=== PATIENT | female | born 1975 | race Caucasian/White ===

== ENCOUNTER 2020-11-26 06:38 | Day surgery (SDC) | payer OTHER ==
[2020-11-22 10:12] LABS: BASOPHILS % (AUTO) 0.4 % (0.0-5.0); HEMATOCRIT 40.1 % (36-48); LYMPHOCYTES % (AUTO) 37.5 % (21.0-51.0); MEAN CORPUSCULAR HEMOGLOBIN 24.9 pg (27.0-33.0); MEAN CORPUSCULAR HGB CONC 30.4 g/dL (32.0-36.0); MEAN CORPUSCULAR VOLUME 81.8 fL (79-99); MONOCYTES % (AUTO) 9.8 % (3.0-13.0); NEUTROPHILS % (AUTO) 50.1 % (40.0-77.0); PLATELET COUNT (AUTO) 301 K/uL (130-400); RED CELL DISTRIBUTION WIDTH 14.4 % (11.0-15.5)
[2020-11-22 10:24] LABS: CREATININE 0.7 mg/dL (0.5-1.5); POTASSIUM 4.4 mmol/L (3.5-5.1)
[2020-11-23 13:04] VITALS: BP 140/85
[~2020-11-26] VITALS: Ht 167.6 cm; Wt 87.5 kg
[2020-11-26] VITALS (17 sets, daily range): BP systolic 119–138; BP diastolic 59–80
[~2020-11-26 06:38] MED LIST: CEFAZOLIN SODIUM 1 GM VIAL IVP SCH; MULTIVITAMIN PO
[2020-11-26] MEDS ORDERED: LACTATED RINGERS 1000ML 1,000 ML IV ONE (07:13)
[2020-11-26] MEDS ORDERED: SODIUM CHLORIDE 0.9% 10 ML VIAL ONE (07:14)
[2020-11-26] MEDS ORDERED: PROPOFOL 10 MG/ML 20ML VIAL IV ONE ×2 (07:15→09:08)
[2020-11-26] MEDS ORDERED: GLYCOPYRROLATE 1 MG/5 ML SYRINGE ONE (07:15)
[2020-11-26] MEDS ORDERED: SUCCINYLCHOLINE CHLORIDE 20 MG/ML 10 ML VIAL ONE (07:15)
[2020-11-26] MEDS ORDERED: DEXAMETHASONE SOD PHOSPHATE 10MG/ML 1ML VIAL ONE (07:15)
[2020-11-26] MEDS ORDERED: LIDOCAINE PF 2% 5ML ABBOJECT ONE (07:15)
[2020-11-26] MEDS ORDERED: ONDANSETRON HCL 4 MG/2 ML VIAL ONE ×2 (07:16→08:57)
[2020-11-26] MEDS ORDERED: MIDAZOLAM HCL 1 MG/ML 2ML VIAL ONE (07:16)
[2020-11-26] MEDS ORDERED: FENTANYL CITRATE PF 50 MCG/1 ML 2ML VIAL ONE ×3 (07:16→10:49)
[2020-11-26] MEDS ORDERED: ROCURONIUM 10MG/1ML SYR 10 MG/ML ML ONE (07:16)
[2020-11-26] MEDS ORDERED: NEOSTIGMINE 5MG/5ML SYR IV ONE (07:16)
[2020-11-26] MEDS ORDERED: ROPIVACAINE 0.5% 5MG/ML 30ML IJ ONE (07:26)
[2020-11-26] MEDS ORDERED: CLINDAMYCIN 900 MG/D5% WATER 50 ML IV ONE (08:04)
[2020-11-26] MEDS ORDERED: CLINDAMYCIN PHOSPHATE 150 MG/ML 6ML VIAL ONE (08:46)
[2020-11-26] MEDS ORDERED: PHENYLEPHRINE HCL 10 MG/ML 1ML VIAL IV ONE (09:03)
[2020-11-26] MEDS ORDERED: CALDOLOR 800MG+NS 250ML 250 ML IV ONE (11:11)
[2020-11-26] MEDS ORDERED: CLIN300C3 PO (11:30)
[2020-11-26] MEDS ORDERED: CALDOLOR 800MG+NS 250ML 250 ML IV SCH (11:30)
[2020-11-26] MEDS ORDERED: MEPERIDINE-PF 25 MG/ML SYG ONE (12:08)
== END 2020-11-26 13:15 | disposition home or self-care (01) ==
LOC: DAH 06:38
PROVIDERS: ATTEND Orthopaedic Surgery
DX: S83.511A Sprain of anterior cruciate ligament of right knee, initial encounter (principal); Z20.828 Contact with and (suspected) exposure to other viral communicable diseases; S83.241A Other tear of medial meniscus, current injury, right knee, initial encounter; S80.11XA Contusion of right lower leg, initial encounter; M94.261 Chondromalacia, right knee; E66.9 Obesity, unspecified; Z88.8 Allergy status to other drugs, medicaments and biological substances; Z88.1 Allergy status to other antibiotic agents; Z98.891 History of uterine scar from previous surgery; Z90.3 Acquired absence of stomach [part of]; Z98.51 Tubal ligation status; Z72.89 Other problems related to lifestyle; X58.XXXA Exposure to other specified factors, initial encounter; Y93.89 Activity, other specified; Y92.89 Other specified places as the place of occurrence of the external cause
CPT/HCPCS: 29888; 36415; 64447; 76942; 80048; 85025; A4215; A4216; A4221; A4222; A4223 ×2; A4649 ×6; A4663; A4930 ×3; A6223; C1713 ×2; C1762; C1776; G0168; J0330; J1100; J1741; J2001; J2175; J2250; J2370; J2405 ×2; J2704 ×2; J2710; J2795; J3010 ×3; J3490 ×2; J7120 ×2; U0003; J0690